=== PATIENT | male | born 1975 ===

== ENCOUNTER 2016-08-11 00:40 | Inpatient (IN) | payer OTHER ==
[2016-08-11] VITALS (247 sets, daily range): BP systolic 101–138; BP diastolic 57–93; PULSE 74–104; TEMP 97.1–98.6; O2SAT 92–99
[~2016-08-11] VITALS: Ht 165.1 cm; Wt 95.5 kg
[2016-08-11 01:21] LABS: ADJUSTED CALCIUM 9.3 mg/dL (8.4-10.2); ALBUMIN 4.1 gm/dL (3.5-5.0); BILIRUBIN,TOTAL 1.5 mg/dL (0.0-1.0); CALCIUM 9.4 mg/dL (8.4-10.2); CREATININE, serum 0.73 mg/dL (0.66-1.25); MAGNESIUM 2.5 mg/dL (1.6-2.3); PHOSPHOROUS 1.7 mg/dL (2.5-4.5); POTASSIUM 3.3 mmol/L (3.4-5.0); TOTAL PROTEIN 7.2 gm/dL (6.4-8.2)
[2016-08-11 01:35] LABS: BASO % 0.1 % (0.0-2.0); GRAN # 6.6 (1.4-6.5); GRAN % 80.3 % (42.2-75.2); HEMATOCRIT 45.8 % (42.0-52.0); HEMOGLOBIN 17.2 g/dl (13.5-18.0); LYMPH # 1.4 (1.2-3.4); LYMPH % 17.2 % (20.0-51.0); MEAN CELL VOLUME 82 fl (80.0-100.0); MEAN CORPUSCULAR HEMOGLOBIN 31 pg (27.0-31.0); MEAN CORPUSCULAR HGB CONC 38 g/dl (33.0-37.0); MEAN PLATELET VOLUME 9.6 fl (7.4-10.4); MONO # 0.2 (0.1-0.6); PLATELET COUNT 174 K/mm3 (130-400); RED BLOOD COUNT 5.59 M/mm3 (4.20-5.60); REDCELL DISTRIBUTION WIDTH-CV 13.9 % (11.5-14.5); WHITE BLOOD COUNT 8.2 K/mm3 (4.8-10.8)
[2016-08-11] MEDS ORDERED: PRINIVIL40 MG PO (01:40)
[2016-08-11] MEDS ORDERED: COREG 6.256.25 MG/TA PO (01:41)
[2016-08-11] MEDS ORDERED: GLUCOPHAGE500 MG/TAB PO (01:41)
[2016-08-11 03:26] LABS: CALCIUM 7.9 mg/dL (8.4-10.2); CREATININE, serum 0.56 mg/dL (0.66-1.25); POTASSIUM 3.4 mmol/L (3.4-5.0)
[2016-08-11 05:29] LABS: CALCIUM 7.4 mg/dL (8.4-10.2); CREATININE, serum 0.58 mg/dL (0.66-1.25); POTASSIUM 3.5 mmol/L (3.4-5.0)
[2016-08-11 10:05] LABS: CALCIUM 7.4 mg/dL (8.4-10.2); CREATININE, serum 0.55 mg/dL (0.66-1.25)
[2016-08-11 10:08] LABS: POTASSIUM 2.9 mmol/L (3.4-5.0)
[2016-08-11 13:21] LABS: CALCIUM 7.4 mg/dL (8.4-10.2); CREATININE, serum 0.56 mg/dL (0.66-1.25); POTASSIUM 3.2 mmol/L (3.4-5.0)
[2016-08-11 16:05] LABS: CALCIUM 8.2 mg/dL (8.4-10.2); CREATININE, serum 0.74 mg/dL (0.66-1.25); POTASSIUM 3.4 mmol/L (3.4-5.0)
[2016-08-12 03:35] VITALS: BP 109/66; PULSE 75; TEMP 98
[2016-08-12] MEDS ORDERED: LANTUS SOLOS100 U/ML SQ (09:03)
[2016-08-12] MEDS ORDERED: GLUCOPHAGE850 MG/TAB PO (09:03)
[2016-08-12 09:05] VITALS: BP 126/71; PULSE 90
[2016-08-12 10:08] LABS: CALCIUM 8.7 mg/dL (8.4-10.2); CREATININE, serum 0.68 mg/dL (0.66-1.25); MAGNESIUM 1.9 mg/dL (1.6-2.3); PHOSPHOROUS 2.9 mg/dL (2.5-4.5); POTASSIUM 3.4 mmol/L (3.4-5.0)
== END 2016-08-12 11:00 | disposition home or self-care (01) | DRG 637 ==
LOC: ICU 00:40 → MEDICAL 12:42
PROVIDERS: Internal Medicine; Nurse Practitioner Family
DX: E11.00 Type 2 diabetes mellitus with hyperosmolarity without nonketotic hyperglycemic-hyperosmolar coma (NKHHC) (principal); E43 Unspecified severe protein-calorie malnutrition; I10 Essential (primary) hypertension; E87.6 Hypokalemia; Z66 Do not resuscitate; E11.65 Type 2 diabetes mellitus with hyperglycemia; Z87.891 Personal history of nicotine dependence; Z79.84 Long term (current) use of oral hypoglycemic drugs; Z68.33 Body mass index [BMI] 33.0-33.9, adult
CPT/HCPCS: 99222-AI; 99239; J1650; J1815; J3480; J7030; J7040